=== PATIENT | female | born 1955 | race African-American/Black ===

== ENCOUNTER 2020-02-19 09:32 | Inpatient (IN) | payer MEDICARE, MEDICAID ==
[~2020-02-19] VITALS: Ht 167.6 cm; Wt 81.2 kg
[~2020-02-19 09:32] MED LIST: AMLO10TA4 PO; ENAL10TA PO; PRAV80TA PO; UNKNOWN MEDS
[2020-02-19 10:30] LABS: HEMATOCRIT. 37.3 % (36.0-48.0); HEMOGLOBIN. 12.2 g/dL (12.0-16.0); MEAN CORPUSCULAR HEMOGLOBIN 28.2 pg (28.0-32.0); MEAN PLATELET VOLUME 9.5 fl (7.4-10.4); PLATELET 197 x1000/uL (130-400); RED BLOOD CELL COUNT 4.33 mill/uL (4.2-5.4); RED CELL DISTRIBUTION WIDTH 17.3 % (11.6-14.6)
[2020-02-19 10:36] LABS: CHLORIDE 104 mEq/L (98-107); INR 1.3; PROTHROMBIN TIME 14.2 sec (9.6-11.0)
[2020-02-19 10:42] LABS: ETHANOL BLOOD < 10 mg/dL
[2020-02-19 10:46] LABS: LDL CHOLESTEROL 75 mg/dL (5-100)
[2020-02-19 10:47] LABS: PLATELET ESTIMATE NORMAL
[2020-02-19] MEDS ORDERED: LORAZEPAM 2MG/ML CPJ IV PRN (12:45)
[2020-02-19] MEDS ORDERED: DIPHENHYDRAMINE 50MG/ML VIAL IV PRN (12:45)
[2020-02-19] MEDS ORDERED: GUAIFENESIN 200MG/10ML SUGAR FREE UDC PO PRN (12:45)
[2020-02-19] MEDS ORDERED: NA PHOS,M-B/NA PHOS,DI-BA ENEMA 118ML PR PRN (12:45)
[2020-02-19] MEDS ORDERED: DOCUSATE SODIUM 100MG CAPSULE PO PRN (12:45)
[2020-02-19] MEDS ORDERED: HYDROCODONE/ACETAMINOPHEN 5/325MG TABLET PO PRN (12:45)
[2020-02-19] MEDS ORDERED: ACETAMINOPHEN 325MG TABLET PO PRN (12:45)
[2020-02-19] MEDS ORDERED: IPRATROPIUM/ALBUTEROL 0.5-3(2.5)MG/3ML NEB NEB PRN (12:45)
[2020-02-19] MEDS ORDERED: MAGNESIUM/ALUMINUM HYDROXIDE/SIMETHICONE 30ML UDC PO PRN (12:45)
[2020-02-19] MEDS ORDERED: MORPHINE SULFATE 2 MG/ML CPJ (NOT FOR IM USE) IV PRN (12:45)
[2020-02-19] MEDS ORDERED: IOHEXOL-350 100 ML BOTTLE ONE (13:10)
[2020-02-19 18:00] VITALS: BP_SYST 128; BP_DIAS 56; BP_DIAS 86
[2020-02-19 18:16] LABS: CLARITY URINE CLEAR (CLEAR); COLOR URINE YELLOW (YELLOW); KETONES URINE NEGATIVE (NEGATIVE); LEUKOCYTE ESTERASE URINE TRACE (NEGATIVE); NITRITE URINE NEGATIVE (NEGATIVE); OCCULT BLOOD URINE NEGATIVE (NEGATIVE); PH URINE 6.5 (4.5-8.0); PROTEIN URINE 2+ (NEGATIVE); SPECIFIC GRAVITY URINE 1.025 (1.005-1.030)
[2020-02-19 18:27] LABS: *AMPHETAMINES SCREEN URINE NEGATIVE (NEGATIVE)
[2020-02-19 18:28] LABS: *BARBITURATES SCREEN URINE NEGATIVE (NEGATIVE); *BENZODIAZEPINES SCREEN URINE NEGATIVE (NEGATIVE); *COCAINE SCREEN URINE NEGATIVE (NEGATIVE); METHADONE URINE SCREEN NEGATIVE (NEGATIVE); OPIATES URINE SCREEN NEGATIVE (NEGATIVE); PHENCYCLIDINE URINE SCREEN NEGATIVE (NEGATIVE)
[2020-02-19 18:29] LABS: CANNABINOID URINE SCREEN NEGATIVE (NEGATIVE)
[2020-02-19] MEDS: ENOXAPARIN 40MG/0.4ML SYR SUBCUT SCH (19:21)
[2020-02-19] MEDS: DEXT 5%/0.45% NACL 1000ML 1,000 ML IV SCH (19:22)
[2020-02-19 20:00] VITALS: BP 162/82
[2020-02-19] MEDS: ONDANSETRON HCL 4MG/2ML INJ IV PRN (21:34)
[2020-02-20] VITALS: BP 154/53
[2020-02-20] MEDS ORDERED: DEXTROSE 50% WATER 50ML SYRINGE IV PRN (03:45)
[2020-02-20 04:00] VITALS: BP 142/68
[2020-02-20] MEDS: INSULIN LISPRO 100 UNITS/ML SUBCUT SCH ×4 (06:48→21:00)
[2020-02-20] MEDS: BLOOD SUGAR DIAGNOSTIC STRIP TEST SCH ×4 (06:48→21:08)
[2020-02-20 08:00] VITALS: BP 163/58
[2020-02-20] MEDS: ASPIRIN 81MG EC TABLET PO SCH (10:07)
[2020-02-20] MEDS: CLONIDINE 0.1MG TABLET PO PRN (11:30)
[2020-02-20 12:00] VITALS: BP 143/63
[2020-02-20] MEDS ORDERED: FUROSEMIDE 40MG/4ML VIAL IVP SCH (15:15)
[2020-02-20] MEDS ORDERED: ALBUMIN HUMAN 25GM/500ML (5%) IV SCH (16:00)
[2020-02-20 18:00] VITALS: BP 138/70
[2020-02-20] MEDS: ENOXAPARIN 40MG/0.4ML SYR SUBCUT SCH (18:47)
[2020-02-20 20:00] VITALS: BP 127/70
[2020-02-20 20:29] LABS: HEMOGLOBIN. 12.9 g/dL (12.0-16.0); MEAN CORPUSCULAR HEMOGLOBIN 28.4 pg (28.0-32.0); MEAN CORPUSCULAR VOLUME 85.6 fL (81.0-99.0); MEAN PLATELET VOLUME 9.5 fl (7.4-10.4); PLATELET 246 x1000/uL (130-400); RED BLOOD CELL COUNT 4.55 mill/uL (4.2-5.4)
[2020-02-20 20:31] LABS: CHLORIDE 101 mEq/L (98-107)
[2020-02-20 20:38] LABS: LDL CHOLESTEROL 83 mg/dL (5-100)
[2020-02-20 20:40] LABS: HDL CHOLESTEROL 37 mg/dL (40-59)
[2020-02-20 20:41] LABS: T4 FREE 1.68 ng/dL (0.76-1.46)
[2020-02-20 20:49] LABS: PLATELET ESTIMATE NORMAL
[2020-02-20 21:06] LABS: HEPATITIS B SURFACE ANTIGEN NEGATIVE
[2020-02-20 21:36] LABS: HEPATITIS A AB IGM NEGATIVE (NEGATIVE)
[2020-02-21] VITALS: BP 139/53
[2020-02-21] MEDS: DEXT 5%/0.45% NACL 1000ML 1,000 ML IV SCH ×2 (01:26→23:58)
[2020-02-21 04:00] VITALS: BP 161/63
[2020-02-21] MEDS: CLONIDINE 0.1MG TABLET PO PRN ×2 (06:03→12:35)
[2020-02-21] MEDS: INSULIN LISPRO 100 UNITS/ML SUBCUT SCH ×4 (06:06→21:00)
[2020-02-21] MEDS: BLOOD SUGAR DIAGNOSTIC STRIP TEST SCH ×4 (06:06→21:34)
[2020-02-21 07:14] LABS: BASOPHILS % 0.5 % (0.0-2.0); EOSINOPHILS % 0.3 % (0.0-5.0); HEMATOCRIT. 34.8 % (36.0-48.0); HEMOGLOBIN. 11.7 g/dL (12.0-16.0); LYMPHOCYTES % 19.8 % (20.0-50.0); MEAN CORPUSCULAR HEMOGLOBIN 28.4 pg (28.0-32.0); MEAN CORPUSCULAR VOLUME 84.8 fL (81.0-99.0); MEAN PLATELET VOLUME 9.8 fl (7.4-10.4); NEUTROPHILS % 69.4 % (40.0-76.0); PLATELET 212 x1000/uL (130-400); RED CELL DISTRIBUTION WIDTH 16.9 % (11.6-14.6)
[2020-02-21 07:29] LABS: CHLORIDE 101 mEq/L (98-107)
[2020-02-21 08:00] VITALS: BP 129/50
[2020-02-21] MEDS: ASPIRIN 81MG EC TABLET PO SCH (09:05)
[2020-02-21] MEDS: ONDANSETRON HCL 4MG/2ML INJ IV PRN (10:19)
[2020-02-21] MEDS: LEVOFLOXACIN 250MG TABLET PO SCH (10:19)
[2020-02-21 12:00] VITALS: BP 163/71
[2020-02-21 16:00] VITALS: BP 155/67
[2020-02-21] MEDS: ENOXAPARIN 40MG/0.4ML SYR SUBCUT SCH (17:50)
[2020-02-21 20:00] VITALS: BP 132/50
[2020-02-22] VITALS: BP 145/77
[2020-02-22 04:00] VITALS: BP 154/79
[2020-02-22] MEDS: BLOOD SUGAR DIAGNOSTIC STRIP TEST SCH ×4 (06:24→21:03)
[2020-02-22] MEDS: INSULIN LISPRO 100 UNITS/ML SUBCUT SCH ×4 (06:25→21:00)
[2020-02-22 08:00] VITALS: BP 160/85
[2020-02-22] MEDS: ASPIRIN 81MG EC TABLET PO SCH (08:39)
[2020-02-22] MEDS: CLONIDINE 0.1MG TABLET PO PRN (08:39)
[2020-02-22] MEDS: LEVOFLOXACIN 250MG TABLET PO SCH (11:28)
[2020-02-22 11:49] VITALS: BP 148/68
[2020-02-22] MEDS: DEXT 5%/0.45% NACL 1000ML 1,000 ML IV SCH (15:06)
[2020-02-22 16:00] VITALS: BP 154/82
[2020-02-22] MEDS: ENOXAPARIN 40MG/0.4ML SYR SUBCUT SCH (18:30)
[2020-02-22 20:00] VITALS: BP 150/77
[2020-02-23] VITALS: BP 150/66
[2020-02-23] MEDS: BLOOD SUGAR DIAGNOSTIC STRIP TEST SCH (05:55)
[2020-02-23] MEDS: INSULIN LISPRO 100 UNITS/ML SUBCUT SCH (05:55)
[2020-02-23 08:00] VITALS: BP 166/82
[2020-02-23] MEDS: ASPIRIN 81MG EC TABLET PO SCH (08:07)
[2020-02-23] MEDS: CLONIDINE 0.1MG TABLET PO PRN (09:33)
[2020-02-23 12:00] VITALS: BP 170/85
[2020-02-23] MEDS: LEVOFLOXACIN 250MG TABLET PO SCH (12:36)
[2020-02-23 13:03] VITALS: BP 170/85
[2020-02-23 16:00] VITALS: BP 160/87
== END 2020-02-23 18:35 | disposition home health service (06) | DRG 420 ==
LOC: ER 09:45 → ENRESERV 17:23 → 7EST 18:17 → 5WST 02-20 17:09
PROVIDERS: ADMIT Internal Medicine; ATTEND Emergency Medicine
DX: E11.649 Type 2 diabetes mellitus with hypoglycemia without coma (principal); J96.00 Acute respiratory failure, unspecified whether with hypoxia or hypercapnia; I13.0 Hypertensive heart and chronic kidney disease with heart failure and stage 1 through stage 4 chronic kidney disease, or unspecified chronic kidney disease; G93.41 Metabolic encephalopathy; E11.22 Type 2 diabetes mellitus with diabetic chronic kidney disease; R65.10 Systemic inflammatory response syndrome (SIRS) of non-infectious origin without acute organ dysfunction; I50.9 Heart failure, unspecified; I50.1 Left ventricular failure, unspecified; G45.9 Transient cerebral ischemic attack, unspecified; R74.0 Nonspecific elevation of levels of transaminase and lactic acid dehydrogenase [LDH]; N18.9 Chronic kidney disease, unspecified; Z20.828 Contact with and (suspected) exposure to other viral communicable diseases; N39.0 Urinary tract infection, site not specified; Z79.899 Other long term (current) drug therapy; E80.6 Other disorders of bilirubin metabolism
CPT/HCPCS: 36415; 70496; 70498; 71045; 76705; 80048; 80053; 80061; 80305; 80307; 80320; 80329; 81003; 82962; 83036; 83721; 84439; 84443; 84484; 85025; 86705; 86709; 86803; 87340; 87635; 93005; 97161; 99285; J1200; J1650; J1815; J1940; J2270; J2405; P9041; Q9967; G0480